=== PATIENT | female | born 1930 | race Caucasian/White ===

== ENCOUNTER → 2019-04-26 | Outpatient (CLI) | payer MEDICARE, BC ==
[~2019-04-26] MED LIST: ACET325 PO; AMLO5 PO; ATOR40TA PO; Aspirin EC81 MG PO; BACL10 PO; BUME1 PO; CARV3.125 PO; CLOP75 PO; Hydrocodone-Ap1 EA23 PO; LEVSOD75 PO; LIOT5 PO; LISI5 PO; LOPE2C PO; LOSA25 PO; Lopressor 25 mg25 MG PO; METO50 PO; OLOP.1OPSO BOTHEYES; THYR60 PO; TRIA50 PO; [UNRECOGNIZED DRUG - OTHER]
[2019-04-26 11:47] LABS: Free Thyroxine 1.17 ng/dL (0.70-1.60)
[2019-04-26 11:48] LABS: Thyroid Stimulating Hormone 2.87 uIU/mL (0.360-4.800); Triiodothyronine, Free 1.52 pg/mL (2.18-3.98)
== END | disposition home or self-care (01) ==
LOC: LAB 10:55 → LAB SHORT 10:55
PROVIDERS: Naturopath
DX: E03.9 Hypothyroidism, unspecified (principal)
CPT/HCPCS: 84439; 84443; 84481

== ENCOUNTER → 2019-08-27 | Outpatient (CLI) | payer MEDICARE, BC | END | disposition home or self-care (01) | LOC: LAB EV 15:13 → LAB SHORT 15:13 | DX: N39.0 Urinary tract infection, site not specified (principal) | CPT/HCPCS: 87077; 87086; 87186 ==